=== PATIENT | female | born 1955 | race Caucasian/White ===

== ENCOUNTER → 2017-11-04 | Outpatient (CLI) | payer BC ==
[~2017-11-04] MED LIST: ASPIR 8181 M1 PO; CALCIUM + D3 E1 EACH PO; CLINORIL150 MG PO; HYDROCHLOROTH12.5 M3 PO; LISINOPRIL10 MG PO; PERCOCET 5/31 TABLET PO; ULTRAM50 MG PO
[2017-11-06 12:43] LABS: Flow Clinical Information NOT PROVIDED (()); Flow Number of Markers 22 (()); Flow Spec Viability 88 % (())
== END | disposition home or self-care (01) ==
LOC: RAD 13:34
PROVIDERS: Internal Medicine Hematology & Oncology
PROC: 07B23ZX Excision of Left Neck Lymphatic, Percutaneous Approach, Diagnostic (ICD-10-PCS; principal; 2017-11-04)
DX: C85.90 Non-Hodgkin lymphoma, unspecified, unspecified site (principal)
CPT/HCPCS: 76942; 88185 90; 88305; 88341 TC; 88342 TC

== ENCOUNTER 2017-11-29 11:03 | Day surgery (SDC) | payer BC ==
[~2017-11-29] VITALS: Ht 157.5 cm; Wt 75.8 kg
[2017-11-29 11:39] VITALS: BP 116/84
[2017-11-29] MEDS ORDERED: NORCO 5/3251 TABLET PO (14:27)
[2017-11-29 15:25] VITALS: BP 134/77
[2017-11-29 16:10] VITALS: BP 138/80
== END 2017-11-29 16:18 | disposition home or self-care (01) ==
LOC: SDC 11:03
PROC: 0JH63WZ Insertion of Totally Implantable Vascular Access Device into Chest Subcutaneous Tissue and Fascia, Percutaneous Approach (ICD-10-PCS; principal; 2017-11-29)
DX: Z45.2 Encounter for adjustment and management of vascular access device (principal); I87.8 Other specified disorders of veins; C83.30 Diffuse large B-cell lymphoma, unspecified site; I10 Essential (primary) hypertension; E66.9 Obesity, unspecified; Z68.31 Body mass index [BMI] 31.0-31.9, adult; Z79.82 Long term (current) use of aspirin
CPT/HCPCS: 71045; 93005; C1751; C1769; J0690; J2250; J3010